=== PATIENT | female | born 1960 | race Caucasian/White ===

== ENCOUNTER 2017-06-01 10:06 | Day surgery (SDC) | payer BC ==
[~2017-06-01 10:06] MED LIST: Buffered Lidocaine 0.9% SYRIN* 5 ML/SYR SYRINGE INTRADERM ONE; NS 0.9% 1000 ML* 1,000 ML IV SCH
[2017-06-01] MEDS ORDERED: Buffered Lidocaine 0.9% SYRIN* 5 ML/SYR SYRINGE ONE (10:13)
[2017-06-01] MEDS ORDERED: ceFAZolin 2 GM PREMIX (*) 50 ML IVPB ONE (10:13)
[2017-06-01] MEDS ORDERED: Scopolamine 1.5 mg* PATCH TRANSDERM PRN (10:59)
[2017-06-01] MEDS ORDERED: HYDROmorphone INJ* 1 MG/ML CARPUJECT SYRINGE IV PRN (10:59)
[2017-06-01] MEDS ORDERED: Acetaminophen TAB* 325 MG PO PRN (10:59)
[2017-06-01] MEDS ORDERED: DiMENhydriNATE IV* 50 MG/ML VIAL IV PUSH PRN (10:59)
[2017-06-01] MEDS ORDERED: Ondansetron INJ* 2 MG/ML VIAL IV PRN (10:59)
[2017-06-01] MEDS ORDERED: Midazolam* 1 MG/ML 5 ML VIAL (5 MG) ONE (11:20)
[2017-06-01] MEDS ORDERED: fentaNYL* 50 MCG/ML 2 ML VIAL (100 MCG VIAL) ONE ×2 (11:20→12:54)
[2017-06-01] MEDS ORDERED: Bupivacaine 0.25% SDV* 30 ML ONE (11:32)
[2017-06-01] MEDS ORDERED: Lidocaine 1% MPF wEPI 200,000* 30 ML SDV ONE (11:38)
[2017-06-01] MEDS ORDERED: Famotidine IV* 10 MG/ML 2 ML (20 mg) ONE (11:39)
[2017-06-01] MEDS ORDERED: KETAMINE HCL* 50 MG/ML 10 ML VIAL ONE (12:09)
[2017-06-01] MEDS ORDERED: Ondansetron INJ* 2 MG/ML VIAL ONE (13:04)
[2017-06-01] MEDS ORDERED: Dexamethasone IV* 4 MG/ML 1 ML (4 MG) ONE (13:04)
[2017-06-01] MEDS ORDERED: Ketorolac INJ* 30 MG/ML 1 ML VIAL ONE (13:04)
[2017-06-01] MEDS ORDERED: Lidocaine 2% PF * 5 ML VIAL ONE (13:04)
[2017-06-01] MEDS ORDERED: Propofol* 10 MG/ML 20 ML BTL IV PUSH ONE (13:04)
[2017-06-01 14:34] VITALS: BP 126/69
[2017-06-04] MEDS ORDERED: Scopolomine PATCH Remove* 1 NOTE MISC PATCH OFF ONE (10:59)
== END 2017-06-01 14:18 | disposition home or self-care (01) ==
LOC: OR 10:06
PROVIDERS: ATTEND Plastic Surgery
DX: L90.5 Scar conditions and fibrosis of skin (principal); C44.41 Basal cell carcinoma of skin of scalp and neck; F41.9 Anxiety disorder, unspecified; F32.9 Major depressive disorder, single episode, unspecified; Z85.820 Personal history of malignant melanoma of skin; Z87.891 Personal history of nicotine dependence; Z80.8 Family history of malignant neoplasm of other organs or systems
CPT/HCPCS: 81025; 88305; 88331; 88332; J0690; J1100; J1885; J2001; J2250; J2405; J2704; J3010

== ENCOUNTER 2017-08-18 07:05 | Emergency (ER) | payer BC ==
[2017-08-18 07:26] VITALS: BP 112/70
--- NOTE | 2017-08-18 08:04 | UC ---
Respiratory Complaint HPI - HPI Summary HPI Summary: 57 YO FEMALE LL FOR ABOUT 5 DAYS FEVERISH CHILLS NASAL CONGESTION AND POST NASAL DRIP COUGH WHICH NOW FEELS THOUGH IT HAS MOVED TO HER CHEST MYALGIAS WHICH WHERE BAD INTIALLY NO CP OR SOB - History of Current Complaint Chief Complaint: UCRespiratory Stated Complaint: COUGH SORE THROAT Time Seen by Provider: 08/18/17 07:37 Hx Obtained From: Patient Hx Last Menstrual Period: 07/28/17 Onset/Duration: Gradual Onset Timing: Constant Severity Initially: Moderate Severity Currently: Mild Pain Intensity: 3 Pain Scale Used: 0-10 Numeric Character: Cough: Nonproductive Aggravating Factors: Deep Breaths Alleviating Factors: Nothing Associated Signs And Symptoms: Positive: Fever - VIVI, Chills, Nasal Congestion, Sinus Discomfort - Allergies/Home Medications Allergies/Adverse Reactions: Allergies Allergy/AdvReac Type Severity Reaction Status Date / Time No Known Allergies Allergy Verified 06/01/17 10:19 Home Medications: Home Medications Propranolol TAB* [Inderal TAB*] 08/18/17 [History] PMH/Surg Hx/FS Hx/Imm Hx Previously Healthy: Yes Respiratory History: Bronchitis, Pneumonia - Surgical History Surgical History: Yes Surgery Procedure, Year, and Place: melanoma removal 1987. ovary "wedging" 1981. BREAST AUGMENTATION- 2009. basal cell surgery 05/2017 - Family History Known Family History: Positive: Hypertension - Social History Alcohol Use: Occasionally Alcohol Amount: 3 glasses wine per week Substance Use Type: None Smoking Status (MU): Former Smoker Amount Used/How Often: 2 cigs per day for 4 years Have You Smoked in the Last Year: No When Did the Patient Quit Smoking/Using Tobacco: 1984 Review of Systems Constitutional: Fever, Chills, Fatigue Skin: Negative Eyes: Negative ENT: Sore Throat, Ear Ache, Nasal Discharge, Sinus Congestion, Sinus Pain/ Tenderness Respiratory: Cough Cardiovascular: Negative Gastrointestinal: Negative Genitourinary: Negative Motor: Negative Neurovascular: Negative Musculoskeletal: Myalgia Neurological: Negative Psychological: Negative Is Patient Immunocompromised?: No All Other Systems Reviewed And Are Negative: Yes Physical Exam Triage Information Reviewed: Yes Appearance: Well-Appearing - NON TOXIC, No Pain Distress, Well-Nourished Vital Signs: Initial Vital Signs Temp 99.2 F 08/18/17 07:16 Pulse 64 08/18/17 07:16 Resp 16 08/18/17 07:16 BP 112/70 08/18/17 07:16 Pulse Ox 99 08/18/17 07:16 Eyes: Positive: Conjunctiva Clear ENT: Positive: Hearing grossly normal, Nasal congestion, Nasal drainage, TMs normal, Uvula midline. Negative: Tonsillar swelling, Tonsillar exudate, Trismus , Muffled voice, Hoarse voice, Sinus tenderness Dental Exam: Normal Neck: Positive: Supple, Nontender, No Lymphadenopathy Respiratory: Positive: Lungs clear, Normal breath sounds, No respiratory distress, No accessory muscle use, Wheezing - WITH FORCED EXPIRATION ONLY Cardiovascular: Positive: RRR, No Murmur Musculoskeletal: Positive: ROM Intact, No Edema Neurological: Positive: Alert Psychological Exam: Normal Skin Exam: Normal UC Diagnostic Evaluation - Laboratory O2 Sat by Pulse Oximetry: 99 - NORMAL/NOT HYPOXIC Respiratory Course/Dx - Differential Dx/Diagnosis Provider Diagnoses: ACUTE BRONCHITS Discharge - Discharge Plan Condition: Stable Disposition: HOME Prescriptions: Amoxicillin PO (*) [Amoxicillin 875 MG (*)] 875 mg PO BID #14 tab Benzonatate CAP* [Tessalon CAP*] 100 - 200 mg PO TID PRN #[id number] cap PRN Reason: Cough Patient Education Materials: Acute Bronchitis (ED) Referrals: Jacinta Mathew MD [Primary Care Provider] - If Needed Additional Instructions: rest fluids robitussin or mucinex RECHECK FOR NEW OR WORSENING SYMPTOMS SEE YOUR MD NEXT WEEK IF NOT BETTER
== END 2017-08-18 07:52 | disposition home or self-care (01) ==
LOC: UCEAST 07:05
DX: J20.9 Acute bronchitis, unspecified (principal); Z72.89 Other problems related to lifestyle; Z87.891 Personal history of nicotine dependence
CPT/HCPCS: 99212; G0463